=== PATIENT | male | born 2000 | race African-American/Black ===

== ENCOUNTER 2024-05-29 20:12 | Emergency (ER) | payer SELFPAY ==
[~2024-05-29] VITALS: Ht 190.5 cm; Wt 71.0 kg
[2024-05-29 20:16] VITALS: PULSE 70; RESP 18; O2SAT 100
[2024-05-29 20:20] VITALS: BP 133/82; TEMP 98.5; O2SAT 100
== END 2024-05-30 00:58 | disposition left against medical advice (07) ==
LOC: ER 20:12
DX: R11.2 Nausea with vomiting, unspecified (principal); Z53.21 Procedure and treatment not carried out due to patient leaving prior to being seen by health care provider

== ENCOUNTER 2024-06-21 09:40 | Emergency (ER) | payer SELFPAY ==
[~2024-06-21] VITALS: Ht 190.5 cm; Wt 70.0 kg
[2024-06-21 09:48] VITALS: O2SAT 98
[2024-06-21 10:29] VITALS: BP 116/67; PULSE 72; RESP 16; TEMP 36.4; O2SAT 99
== END 2024-06-21 15:36 | disposition left against medical advice (07) ==
LOC: ER 09:40
DX: R11.2 Nausea with vomiting, unspecified (principal); Z53.21 Procedure and treatment not carried out due to patient leaving prior to being seen by health care provider